=== PATIENT | male | born 1965 | race Caucasian/White ===

== ENCOUNTER 2024-05-08 17:12 | Emergency (ER) | payer OTHER ==
[2024-05-08 17:19] VITALS: TEMP 98.2
--- NOTE | 2024-05-08 17:22 | ED ---
Fall HPI - General Chief Complaint: Fall Stated Complaint: fall-rib pain Time Seen by Provider: 05/08/24 17:30 Source: patient, RN notes reviewed Mode of arrival: ambulatory - History of Present Illness Initial Comments: 58-year-old male presenting to the ER with chief complaint of right shoulder pain x 2 weeks. Patient states he had an injury at work 12 days ago when he was painting a house and fell about 12 feet down a flight of stairs. Patient states he landed on his right shoulder and right sided ribs. Patient has been having pain since then. Patient was seen at urgent care but instructed to come to ER. - Related Data Previous Rx's Medication Instructions Recorded Cyclobenzaprine [Flexeril] 10 mg PO TID PRN #15 tab 05/08/24 Naproxen [Naprosyn] 500 mg PO Q12H PRN #30 tablet 05/08/24 Allergies Allergy/AdvReac Type Severity Reaction Status Date / Time No Known Allergies Allergy Verified 05/08/24 17:19 Review of Systems ROS Statement: Those systems with pertinent positive or pertinent negative responses have been documented in the HPI. ROS Other: All systems not noted in ROS Statement are negative. Past Medical History Past Medical History: No Reported History History of Any Multi-Drug Resistant Organisms: None Reported Past Surgical History: Tonsillectomy Past Psychological History: No Psychological Hx Reported Smoking Status: Current every day smoker Past Alcohol Use History: None Reported Past Drug Use History: Marijuana General Exam Limitations: no limitations General appearance: alert, in no apparent distress Head exam: Present: atraumatic, normocephalic, normal inspection Eye exam: Present: normal appearance, PERRL, EOMI. Absent: scleral icterus, conjunctival injection, periorbital swelling Neck exam: Present: normal inspection. Absent: tenderness, meningismus, lymphadenopathy Respiratory exam: Present: normal lung sounds bilaterally, chest wall tenderness (Right-sided rib tenderness). Absent: respiratory distress, wheezes, rales, rhonchi, stridor Cardiovascular Exam: Present: regular rate, normal rhythm, normal heart sounds. Absent: systolic murmur, diastolic murmur, rubs, gallop, clicks Right Shoulder Exam: Present: normal inspection, full ROM (Pain with flexion of right shoulder), tenderness (Tenderness in posterior aspect of right shoulder). Absent: swelling, abrasion Upper Arm exam: Present: normal inspection, full ROM. Absent: tenderness, swelling Elbow exam: Present: normal inspection, full ROM. Absent: tenderness, swelling Forearm Wrist exam: Present: normal inspection, full ROM. Absent: tenderness, swelling Hand Wrist exam: Present: normal inspection, full ROM. Absent: tenderness, swelling Vascular: Present: normal capillary refill, radial pulse. Absent: vascular compromise Neurological exam: Present: alert, oriented X3 Psychiatric exam: Present: normal affect, normal mood Skin exam: Present: warm, dry, intact, normal color. Absent: rash Course Vital Signs 05/08/24 05/08/24 17:16 19:26 Temperature 98.2 F Pulse Rate 67 61 Respiratory 18 16 Rate Blood Pressure 112/66 107/68 O2 Sat by Pulse 97 98 Oximetry Medical Decision Making - Medical Decision Making Was pt. sent in by a medical professional or institution (Dr. PA, MEDICAL LABORATORY MANAGER, urgent care, hospital, or [facility]...) When possible be specific @ -No Did you speak to anyone other than the patient for history (EMS, parent, family, police, friend...)? What history was obtained from this source @ -No Did you review nursing and triage notes (agree or disagree)? Why? @ -I reviewed and agree with nursing and triage notes Were old charts reviewed (outside hosp., previous admission, EMS record, old EKG, old radiological studies, urgent care reports/EKG's, [facility] records)? Report findings @ -No old charts were reviewed Differential Diagnosis (chest pain, altered mental status, abdominal pain women, abdominal pain men, vaginal bleeding, weakness, fever, dyspnea, syncope, headache, dizziness, GI bleed, back pain, seizure, CVA, palpatations, mental health, musculoskeletal)? @ -Differential Musculoskeletal Muscular strain, contusion, ligament sprain, fracture, arthritis, septic arthritis, bursitis, cellulitis, muscle spasm, nerve compression, DVT, arterial occlusion, herpes zoster, electrolyte abnormality, tumor.... This is not meant to be in all inclusive list EKG interpreted by me (3pts min.). @ -None X-rays interpreted by me (1pt min.). @ -X-ray right shoulder and right ribs reveal fracture of scapula CT interpreted by me (1pt min.). @ -None done U/S interpreted by me (1pt. min.). @ -None done What testing was considered but not performed or refused? (CT, X-rays, U/S, labs)? Why? @ -None What meds were considered but not given or refused? Why? @ -None Did you discuss the management of the patient with other professionals (professionals i.e. , PA, MEDICAL LABORATORY MANAGER, lab, RT, psych nurse, child protective services social worker, boiling house hand, teacher, air control/anti air warfare officer, case hardener)? Give summary @ -No Was smoking cessation discussed for >3mins.? @ -No Was critical care preformed (if so, how long)? @ -No Were there social determinants of health that impacted care today? How? (Homelessness, low income, unemployed, alcoholism, drug addiction, transportation, low edu. Level, literacy, decrease access to med. care, fpc, rehab)? @ -No Was there de-escalation of care discussed even if they declined (Discuss DNR or withdrawal of care, Hospice)? DNR status @ -No What co-morbidities impacted this encounter? (DM, HTN, Smoking, COPD, CAD, Cancer, CVA, ARF, Chemo, Hep., AIDS, mental health diagnosis, sleep apnea, morbid obesity)? @ -None Was patient admitted / discharged? Hospital course, mention meds given and route, prescriptions, significant lab abnormalities, going to OR and other pertinent info. @ -Patient discharged. This is a 58-year-old male presenting with fall 12 days ago onto his right shoulder. Patient states he was painting on a staircase when he accidentally fell down the stairs approximately 12 feet landing on his right shoulder. Patient states he has had consistent pain since then on the posterior aspect of his shoulder. No other injuries. On examination, there is tenderness to palpation on posterior aspect of right shoulder. Neurovascularly intact. Shoulder x-ray and rib x-ray revealed fracture of right scapula. Discussed results with patient. He was immediately placed in a sling. I recommended patient wait in the ER while we contact orthopedics for further guidance, however patient states he would like to be discharged and follow-up outpatient with orthopedics. I believe this is reasonable as fall was 12 days ago. Advised to follow-up with orthopedics in 1 to 3 days. Patient is agreeable to plan. Case was discussed with my ED attending Dr. Medrano. Patient discharged with analgesics. Undiagnosed new problem with uncertain prognosis? @ -No Drug Therapy requiring intensive monitoring for toxicity (Heparin, Nitro, Insulin, Cardizem)? @ -No Were any procedures done? @ -No Diagnosis/symptom? @ -Right scapular fracture Acute, or Chronic, or Acute on Chronic? @ -Acute Uncomplicated (without systemic symptoms) or Complicated (systemic symptoms)? @ -Uncomplicated Side effects of treatment? @ -No Exacerbation, Progression, or Severe Exacerbation? @ -No Poses a threat to life or bodily function? How? (Chest pain, [place], [place], pneumonia, PE, COPD, DKA, ARF, appy, cholecystitis, CVA, Diverticulitis, Homicidal, Suicidal, threat to staff... and all critical care pts) @ -Possibly Disposition Clinical Impression: Right scapula fracture Disposition: HOME SELF-CARE Condition: Stable Instructions (If sedation given, give patient instructions): Scapular Fracture (ED) Additional Instructions: Follow-up with orthopedics in 1 to 3 days. Take naproxen and Flexeril as needed for pain. Please return to the Emergency Department if symptoms worsen or any other concerns. Prescriptions: Cyclobenzaprine [Flexeril] 10 mg PO TID PRN #15 tab PRN Reason: Muscle Spasm Naproxen [Naprosyn] 500 mg PO Q12H PRN #30 tablet PRN Reason: Pain Is patient prescribed a controlled substance at d/c from ED?: No Referrals: None,Stated [Primary Care Provider] - 1-2 days Li Cruz DO [Doctor of Osteopathic Medicine] - 1-2 days Time of Disposition: 19:18
--- NOTE | 2024-05-08 18:47 | XR ---
EXAMINATION TYPE: XR ribs RT w pa chest xray DATE OF EXAM: 05/08/2024 COMPARISON: None HISTORY: Right rib pain, fall one week prior TECHNIQUE: Right ribs examined in 2 projections. FINDINGS: No acute displaced rib fractures evident. No pneumothorax is evident. Heart size is normal. Pulmonary vasculature is normal. Scapula has abnormal alignment. Scapular fracture is evident. IMPRESSION: 1. Right scapular fracture. 2. Right ribs appear intact. [facility], Workstation: [facility], 05/08/2024 6:45 PM
--- NOTE | 2024-05-08 18:56 | XR ---
EXAMINATION TYPE: XR shoulder complete RT DATE OF EXAM: 05/08/2024 COMPARISON: NONE HISTORY: Pain, fall down 12 stairs. TECHNIQUE: Right Shoulder examined in 3 projections. FINDINGS: The humeral head articulates with the glenoid. The acromio-clavicular junction is normal. At the base of the glenoid there is angulation. Lucency extends through the scapula with distortion o f the normal positioning compatible with a fracture. Report was called to the emergency room PA at th e time of interpretation. A follow up study can be performed 7-10 days from acute trauma for continued pain. MRI can be perfor med if soft tissue evaluation would be of benefit. IMPRESSION: 1. Fracture of the scapula. 2. Right shoulder otherwise appears intact. [facility], Workstation: [facility], 05/08/2024 6:53 PM
[2024-05-08 19:27] VITALS: BP 107/68; PULSE 61; RESP 16
== END 2024-05-08 19:27 | disposition home or self-care (01) ==
LOC: EC 17:12
DX: S42.101A Fracture of unspecified part of scapula, right shoulder, initial encounter for closed fracture (principal); F17.200 Nicotine dependence, unspecified, uncomplicated; W10.9XXA Fall (on) (from) unspecified stairs and steps, initial encounter; Y99.0 Civilian activity done for income or pay
CPT/HCPCS: 99283